=== PATIENT | male | born 1975 | race Asian ===

== ENCOUNTER 2019-02-25 08:41 | Emergency (ER) | payer OTHER ==
[~2019-02-25] VITALS: Ht 165.1 cm; Wt 75.0 kg
[2019-02-25] MEDS ORDERED: KETOROLAC 60 MG/2 ML VIAL (J1885) IM ONE (09:15)
[2019-02-25 09:23] LABS: BASO % 0.3 % (0.0-1.0); EOS % 0.4 % (0.0-3.0); HEMATOCRIT 43.4 % (42.0-52.0); HEMOGLOBIN 14.9 g/dl (13.5-17.5); LYMPH # 2.7 10^3/uL (1.5-5.0); MEAN CORPUSCULAR HEMOGLOBIN 30.9 pg (27.0-33.0); MEAN CORPUSCULAR HGB CONC 34.3 g/dl (32.0-36.5); MONO % 8.9 % (0.0-5.0); NEUTROPHILS # 7.1 10^3/uL (1.5-8.5); NEUTROPHILS % 65.1 % (36.0-66.0); PLATELET COUNT, AUTOMATED 245 10^3/uL (150-450); RED BLOOD COUNT 4.82 10^6/uL (4.30-6.10); WHITE BLOOD COUNT 10.8 10^3/uL (4.0-10.0)
[2019-02-25 09:45] LABS: ERYTHROCYTE SEDIMENTATION RATE 28 mm/hr (0-15)
--- NOTE | 2019-02-25 10:01 | REP ---
RIGHT WRIST, FOUR VIEWS: Four views of the right wrist are performed. There is no acute fracture or dislocation. There is an old healed fracture of the distal radius with a metallic plate and multiple metallic screws at that location. There is an old unfused avulsion fracture of the ulnar styloid process. A small calcific density is seen in the scapholunate joint about 2 mm in diameter probably representing an old fracture fragment. I do not see any acute findings. Electronically Signed by Jagjit Monterroso MD 02/25/2019 06:29 P
[2019-02-25 11:03] LABS: BLOOD UREA NITROGEN 9 MG/DL (7-18); C REACTIVE PROTEIN QUANTITATIV 5.23 MG/DL (0.00-0.30); CALCIUM LEVEL 9.3 MG/DL (8.5-10.1); CARBON DIOXIDE LEVEL 24 MEQ/L (21-32); CHLORIDE LEVEL 104 MEQ/L (98-107); CREATININE FOR GFR 1.08 MG/DL (0.70-1.30); GLOMERULAR FILTRATION RATE > 60.0 (>60); GLUCOSE, FASTING 126 MG/DL (70-100); POTASSIUM SERUM 3.6 MEQ/L (3.5-5.1); SODIUM LEVEL 138 MEQ/L (136-145)
[2019-02-25] MEDS ORDERED: COLC1TAB13 PO (11:15)
[2019-02-25 11:21] VITALS: BP 140/94
[2019-02-25 11:25] LABS: URIC ACID 5.8 MG/DL (3.5-7.2)
== END 2019-02-25 11:25 | disposition home or self-care (01) ==
LOC: M ED 08:41 → EDBD 08:41 → M ED 11:25
DX: M1A.0310 Idiopathic chronic gout, right wrist, without tophus (tophi) (principal); Z91.018 Allergy to other foods
CPT/HCPCS: 36415; 73110; 80048; 84550; 85025; 85652; 86140; 96372; 99283; J1885

== ENCOUNTER 2019-11-05 07:16 | Emergency (ER) | payer OTHER ==
[~2019-11-05] VITALS: Ht 165.1 cm; Wt 77.6 kg
[~2019-11-05 07:16] MED LIST: COLC1TAB13 PO
[2019-11-05 08:28] LABS: BASO % 0.4 % (0.0-1.0); EOS # 0.3 10^3/uL (0.0-0.5); EOS % 3.9 % (0.0-3.0); HEMATOCRIT 42.3 % (42.0-52.0); LYMPH # 2.9 10^3/uL (1.5-5.0); LYMPH % 40.6 % (24.0-44.0); MEAN CORPUSCULAR HGB CONC 33.1 g/dl (32.0-36.5); MEAN CORPUSCULAR VOLUME 87.6 fl (80.0-96.0); MONO # 0.6 10^3/uL (0.0-0.8); MONO % 8.7 % (0.0-5.0); NEUTROPHILS # 3.3 10^3/uL (1.5-8.5); NEUTROPHILS % 46.1 % (36.0-66.0); PLATELET COUNT, AUTOMATED 311 10^3/uL (150-450); RED BLOOD COUNT 4.83 10^6/uL (4.30-6.10); WHITE BLOOD COUNT 7.1 10^3/uL (4.0-10.0)
[2019-11-05 08:46] LABS: BLOOD UREA NITROGEN 10 MG/DL (7-18); CALCIUM LEVEL 8.9 MG/DL (8.5-10.1); CARBON DIOXIDE LEVEL 27 MEQ/L (21-32); CHLORIDE LEVEL 108 MEQ/L (98-107); CREATININE FOR GFR 1.05 MG/DL (0.70-1.30); GLOMERULAR FILTRATION RATE > 60.0 (>60); GLUCOSE, FASTING 105 MG/DL (70-100); POTASSIUM SERUM 4.2 MEQ/L (3.5-5.1); SODIUM LEVEL 141 MEQ/L (136-145)
[2019-11-05] MEDS ORDERED: NAPR500T6 PO (09:38)
[2019-11-05] MEDS ORDERED: PRED20TA PO (09:39)
[2019-11-05] MEDS ORDERED: NAPROXEN 250 MG TAB PO ONE (09:45)
[2019-11-05] MEDS ORDERED: predniSONE 20 MG TAB PO ONE (09:45)
[2019-11-05 09:54] VITALS: BP 146/91
--- NOTE | 2019-11-05 13:32 | REP ---
LEFT ANKLE, FOUR VIEWS: There is no evidence of an acute fracture, dislocation, or intrinsic bone disease. IMPRESSION: No fracture or dislocation. Electronically Signed by Jagjit Monterroso MD 11/05/2019 09:40 P
--- NOTE | 2019-11-05 13:33 | REP ---
LEFT FOOT, FOUR VIEWS: There is no evidence of an acute fracture, dislocation, or intrinsic bone disease. IMPRESSION: No fracture or dislocation. Electronically Signed by Jagjit Monterroso MD 11/05/2019 09:41 P
== END 2019-11-05 09:55 | disposition home or self-care (01) ==
LOC: M ED 07:16
DX: M10.072 Idiopathic gout, left ankle and foot (principal); Z91.013 Allergy to seafood; Z79.899 Other long term (current) drug therapy

== ENCOUNTER 2019-12-27 17:27 | Emergency (ER) | payer OTHER ==
[~2019-12-27] VITALS: Ht 165.1 cm; Wt 78.3 kg
[~2019-12-27 17:27] MED LIST changes: +NAPR500T6 PO; +PRED20TA PO
[2019-12-27] MEDS ORDERED: INDO-16 (17:34)
--- NOTE | 2019-12-27 18:05 | ECGEPIP ---
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
[2019-12-27 18:11] LABS: BASO % 0.4 % (0.0-1.0); EOS # 0.2 10^3/uL (0.0-0.5); EOS % 2.1 % (0.0-3.0); HEMATOCRIT 43.2 % (42.0-52.0); HEMOGLOBIN 14.3 g/dl (13.5-17.5); LYMPH # 2.9 10^3/uL (1.5-5.0); LYMPH % 36.1 % (24.0-44.0); MEAN CORPUSCULAR HEMOGLOBIN 29.4 pg (27.0-33.0); MEAN CORPUSCULAR HGB CONC 33.1 g/dl (32.0-36.5); MEAN CORPUSCULAR VOLUME 88.7 fl (80.0-96.0); MONO # 0.7 10^3/uL (0.0-0.8); MONO % 9.2 % (0.0-5.0); NEUTROPHILS # 4.2 10^3/uL (1.5-8.5); PLATELET COUNT, AUTOMATED 257 10^3/uL (150-450); RED BLOOD COUNT 4.87 10^6/uL (4.30-6.10)
--- NOTE | 2019-12-27 18:42 | REP ---
Clinical: Chest pain . Comparison: None . Findings: The mediastinum and cardiac silhouette are stable and within normal limits for portable technique. The lung mandel are clear without acute consolidation, effusion, or pneumothorax. Skeletal structures are intact. Impression: No acute cardiopulmonary process appreciated. Electronically Signed by Jonathan Whitehead MD 12/27/2019 06:33 P
[2019-12-27] MEDS ORDERED: KETO10TAB PO (18:50)
[2019-12-27 18:56] LABS: BLOOD UREA NITROGEN 14 MG/DL (7-18); CALCIUM LEVEL 9.3 MG/DL (8.5-10.1); CARBON DIOXIDE LEVEL 25 MEQ/L (21-32); CHLORIDE LEVEL 107 MEQ/L (98-107); CK-MB VALUE MASS 1.6 NG/ML (<3.6); CPK CREATINE PHOSPHOKINASE 316 U/L (39-308); CREATININE FOR GFR 1.38 MG/DL (0.70-1.30); GLOMERULAR FILTRATION RATE 59.6 (>60); GLUCOSE, FASTING 123 MG/DL (70-100); MB/CK RELATIVE INDEX 0.51 (< OR =4); SODIUM LEVEL 141 MEQ/L (136-145); TROPONIN I < 0.02 NG/ML (< 0.10)
[2019-12-27] MEDS ORDERED: KETOROLAC 30 MG/ML 1ML VIAL IV ONE (19:00)
[2019-12-27 19:15] VITALS: BP 147/93
== END 2019-12-27 19:42 | disposition home or self-care (01) ==
LOC: M ED 17:27
DX: M94.0 Chondrocostal junction syndrome [Tietze] (principal); M10.9 Gout, unspecified; Z91.018 Allergy to other foods
CPT/HCPCS: 71045; 80047; 80048; 82550; 82553; 84484; 85025; 93005; 93041; 94760; 96374; 99284; J1885

== ENCOUNTER 2020-09-29 05:47 | Inpatient (IN) | payer OTHER ==
[~2020-09-29] VITALS: Ht 165.1 cm; Wt 75.0 kg
[~2020-09-29 05:47] MED LIST changes: +COLC0.6T47 PO; -COLC1TAB13 PO; +INDO-16; +KETO10TAB PO
[2020-09-29] MEDS ORDERED: ZYLO300T6 PO (05:57)
[2020-09-29 07:00] LABS: BASO % 0.3 % (0.0-1.0); EOS % 0.3 % (0.0-3.0); HEMATOCRIT 44.2 % (42.0-52.0); HEMOGLOBIN 14.6 g/dl (13.5-17.5); LYMPH # 1.9 10^3/uL (1.5-5.0); LYMPH % 17.6 % (24.0-44.0); MEAN CORPUSCULAR HEMOGLOBIN 29.7 pg (27.0-33.0); MONO # 1.1 10^3/uL (0.0-0.8); MONO % 10.1 % (2.0-8.0); NEUTROPHILS # 7.5 10^3/uL (1.5-8.5); PLATELET COUNT, AUTOMATED 259 10^3/uL (150-450); RED BLOOD COUNT 4.91 10^6/uL (4.30-6.10); WHITE BLOOD COUNT 10.6 10^3/uL (4.0-10.0)
[2020-09-29 07:19] LABS: BLOOD UREA NITROGEN 10 MG/DL (7-18); CALCIUM LEVEL 9.4 MG/DL (8.5-10.1); CARBON DIOXIDE LEVEL 27 MEQ/L (21-32); CHLORIDE LEVEL 104 MEQ/L (98-107); CREATININE FOR GFR 1.14 MG/DL (0.70-1.30); GLOMERULAR FILTRATION RATE > 60.0 (>60); GLUCOSE, FASTING 122 MG/DL (70-100); POTASSIUM SERUM 3.3 MEQ/L (3.5-5.1); SODIUM LEVEL 137 MEQ/L (136-145); URIC ACID 6.9 MG/DL (3.5-7.2)
[2020-09-29] MEDS ORDERED: ACETAMINOPHEN 325 MG TAB PO ONE (07:25)
[2020-09-29 07:39] LABS: ERYTHROCYTE SEDIMENTATION RATE 8 mm/hr (0-15)
--- NOTE | 2020-09-29 08:15 | REPVR ---
PROCEDURE INFORMATION: Exam: XR Right Femur Exam date and time: 09/29/2020 7:07 AM Age: 44 years old Clinical indication: Pain; Multiple sites; Right; Additional info: Severe swelling, limited rom after running yesterday TECHNIQUE: Imaging protocol: XR Right femur. Views: 2 views. COMPARISON: No relevant prior studies available. FINDINGS: Bones/joints: Unremarkable. No acute fracture. Soft tissues: Unremarkable. IMPRESSION: No acute findings. Electronically signed by: Tato Wade On 09/29/2020 08:15:27 AM
--- NOTE | 2020-09-29 08:15 | REPVR ---
PROCEDURE INFORMATION: Exam: XR Right Tibia and Fibula Exam date and time: 09/29/2020 7:07 AM Age: 44 years old Clinical indication: Pain; Multiple sites; Right; Additional info: Severe swelling, limited rom after running yesterday TECHNIQUE: Imaging protocol: XR Right tibia and fibula. Views: 2 views. COMPARISON: No relevant prior studies available. FINDINGS: Bones/joints: Normal. Soft tissues: Normal. IMPRESSION: No acute findings. Electronically signed by: Tato Wade On 09/29/2020 08:14:59 AM
--- NOTE | 2020-09-29 08:16 | REPVR ---
PROCEDURE INFORMATION: Exam: XR Right Knee Exam date and time: 09/29/2020 7:07 AM Age: 44 years old Clinical indication: Pain; Knee; Right; Additional info: Severe swelling, limited rom after running yesterday TECHNIQUE: Imaging protocol: XR Right knee. Views: 4 or more views. COMPARISON: CR Femur RIGHT 09/29/2020 6:26 AM FINDINGS: Bones/joints: There is no fracture or dislocation. There is questionable suprapatellar knee joint effusion. Soft tissues: Normal. IMPRESSION: No fracture or dislocation. Questionable suprapatellar knee joint effusion. Electronically signed by: Tato Wade On 09/29/2020 08:16:33 AM
[2020-09-29] MEDS ORDERED: LIDOCAINE 2% MDV 20ML VIAL SC ONE (08:50)
[2020-09-29 09:42] LABS: SOURCE, BODY FLUID RT KNEE; SYNOVIAL FLUID COLOR PALE YELLOW (YELLOW)
[2020-09-29 09:45] LABS: SOURCE, BODY FLUID URIC ACID RT KNEE; URIC ACID, BODY FLUID 7.7 MG/DL (NOT ESTABLISHED)
[2020-09-29 09:46] LABS: SOURCE, BODY FLUID GLUCOSE RT KNEE
[2020-09-29 09:50] LABS: CRYSTALS, BODY FLUID URIC ACID (NONE SEEN); SOURCE, BODY FLUID CRYSTALS RT KNEE
[2020-09-29 09:56] LABS: BODY FLUID RHEUMATOID SCREEN NEGATIVE (NEGATIVE)
[2020-09-29 09:57] LABS: MUCIN CLOT TEST 4+ (4+)
[2020-09-29] MEDS: NS 1,000 ML IV SCH (10:19)
[2020-09-29 10:44] LABS: RSV AMPLIFICATION NEGATIVE (NEGATIVE)
[2020-09-29 13:01] VITALS: BP 155/89
[2020-09-29] MEDS ORDERED: KETOROLAC 30 MG/ML 1ML VIAL IV ONE (14:45)
[2020-09-29] MEDS ORDERED: KETOROLAC 30 MG/ML 1ML VIAL As Ordered ONE (15:30)
[2020-09-29] MEDS: allopurinoL 300 MG TAB PO SCH ×2 (15:57→18:06)
--- NOTE | 2020-09-29 15:57 | HPEPDOC ---
General Date of Admission Sep 29, 2020 at 10:09 Date of Service: Sep 29, 2020 Chief Complaint The patient is a 44-year-old male admitted with a reason for visit of Gout Flare Septic Joint Of Rt Knee Joint. 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 He denied any trauma or nay fall. It did not get better this am so came to the ED. He has been training a little harder than usual as he is going back to school so needs his physical fitness improved. His pain was located at the right knee about 5/10 when i saw him. He did get tylenol before, dull aching with swelling and warmth, no radiation. He had a kneetap done in the ED with WBC 79148 with 93% neutrophils, positive uric acid crystals, fluid glucose was very low at 5. fluid uric acid 7.7, blood was 6.9, cludy with lots of fibrin clots. Patient was admitted for possible septic arthritis with gout. Home Medications Scheduled Allopurinol (Zyloprim) 300 Mg Tablet, 300 MG PO DAILY, (Reported) Allergies Coded Allergies: Shrimp (Verified Allergy, Severe, throat swelling, 02/25/19) Past Medical History Medical History Gout Surgical History Right wrist surgery Family History Significant Family History: No pertinent family hx discussed with patient Social History Alcohol: occationally Drugs: denies A-FIB/CHADSVASC A-FIB History Current/History of A-Fib/PAF?: No Review of Systems Constitutional: Denies: Chills, Fever, Night Sweats Eyes: Denies: Pain, Vision change ENT: Denies: Head Aches, Ear Pain, Dysphagia Skin: Denies: Rash, Lesions, Breakdown Pulmonary: Denies: Dyspnea, Cough Cardiovascular: Denies: Chest Pain, Palpitations, Orthopnea, Paroxysmal Noc. Dyspnea, Lt Headedness Gastrointestinal: Denies: Nausea, Vomiting, Abdominal Pain, Diarrhea Musculoskeletal: Reports: Joint Pain (right knee pain and swelling) Neurological: Denies: Weakness, Numbness, Change in speech, Confusion Physical Examination General Exam: Positive: Alert, Cooperative, No Acute Distress Eye Exam: Positive: PERRLA, Conjunctiva & lids normal, EOMI; Negative: Sclera icteric ENT Exam: Positive: Atraumatic, Mucous membr. moist/pink, Pharynx Normal Neck Exam: Positive: Supple; Negative: JVD, thyromegaly Chest Exam: Positive: Clear to auscultation, Normal air movement Heart Exam: Positive: Rate Normal, Regular Rhythm, Normal S1, Normal S2; Negative: Murmurs, Rubs Abdomen Exam: Positive: Normal bowel sounds, Soft; Negative: Tenderness, Hepatospenomegaly Extremity Exam: Positive: Tenderness (right knee), Swelling (right knee); Negative: Clubbing, Cyanosis, Edema Skin Exam: Positive: Other skin issue (right knee warm and red) Neuro Exam: Positive: Normal Speech, Strength at 5/5 X4 ext, Normal Tone Psych Exam: Positive: Memory Intact, Oriented x 3 Vital Signs Vital Signs Date Time Temp Pulse Resp B/P (MAP) Pulse Ox O2 Delivery O2 Flow Rate FiO2 09/29/20 13:01 98.1 74 20 155/89 (111) 98 Room Air Laboratory Data Labs 24H Laboratory Tests 2 09/29/20 06:36: Immature Granulocyte % (Auto) 0.7, Neutrophils (%) (Auto) 71.0H, Lymphocytes (%) (Auto) 17.6L, Monocytes (%) (Auto) 10.1H, Eosinophils (%) (Auto) 0.3, Basophils (%) (Auto) 0.3, Neutrophils # (Auto) 7.5, Lymphocytes # (Auto) 1.9, Monocytes # (Auto) 1.1H, Eosinophils # (Auto) 0.0, Basophils # (Auto) 0.0, Nucleated Red Blood Cells % (auto) 0.0, Erythrocyte Sedimentation Rate 8, Anion Gap 6L, Glomerular Filtration Rate > 60.0, Lactic Acid Level 1.3, Uric Acid 6.9, Calcium Level 9.4, C-Reactive Protein, Quantitative 17.50H 09/29/20 09:02: Body Fluid Source RT KNEE, Body Fluid WBC (Auto) 05211Y, Body Fluid RBC (Auto) < 2, Body Fluid Mononuclear Cells % Auto 6.9H, Fluid Polymorphonuclear Cell % Auto 93.1H, Body Fluid Crystals URIC ACIDH, Body Fluid Crystal Source RT KNEE, Body Fluid Glucose Source RT KNEE, Body Fluid Glucose 5, Body Fluid Uric Acid 7.7, Body Fluid Uric Acid Source RT KNEE, Body Fluid Rheumatoid Factor Screen NEGATIVE, Body Fluid Rheumatoid Factor Source RT KNEE, Synovial Fluid Source RT KNEE, Synovial Fluid Color PALE YELLOW, Synovial Fluid Appearance CLOUDY, Synovial Fluid Mucin Clot 4+ 09/29/20 10:01: Coronavirus (COVID-19)(PCR) NEGATIVE, Influenza Type A (RT-PCR) NEGATIVE, Influenza Type B (RT-PCR) NEGATIVE, Respiratory Syncytial Virus (PCR) NEGATIVE CBC/BMP Laboratory Tests 09/29/20 06:36 Microbiology Microbiology 09/29/20 Gram Stain - Final, Resulted 09/29/20 Body Fluid Culture, Resulted Pending 09/29/20 Blood Culture, Received Pending 09/29/20 Blood Culture, Received Pending Assessment/Plan 44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 He denied any trauma or nay fall. It did not get better this am so came to the ED. He has been training a little harder than usual as he is going back to school so needs his physical fitness improved. His pain was located at the right knee about 5/10 when i saw him. He did get tylenol before, dull aching with swelling and warmth, no radiation. He had a kneetap done in the ED with WBC 78037 with 93% neutrophils, positive uric acid crystals, fluid glucose was very low at 5. fluid uric acid 7.7, blood was 6.9, cludy with lots of fibrin clots. Patient was admitted for possible septic arthritis with gout. Rule out Right knee septic arthritis Patient to go to OR with Dr Roberts. As patient is not septic will hold antibiotics till cultures sent from OR pain control with toradol prn. Gout Patient has h/o gout and this may be a gout flare will start on colchicine. continue allopurinol. Plan / VTE VTE Prophylaxis Ordered?: Yes PADMINI AGUILAR MD Sep 29, 2020 15:57
[2020-09-29] MEDS ORDERED: COLCHICINE 0.6 MG TABLET PO ONE (16:05)
[2020-09-29] MEDS ORDERED: fentaNYL 100 MCG/2 ML INJECTION (J3010) As Ordered ONE ×2 (18:05→20:56)
[2020-09-29] MEDS ORDERED: propofoL 200 MG/20 ML VIAL As Ordered ONE (18:05)
[2020-09-29] MEDS ORDERED: LIDOCAINE 2% 100MG/5ML SDV (FOR ANES.) As Ordered ONE (18:05)
[2020-09-29] MEDS ORDERED: MIDAZOLAM INJ 2MG/2ML VIAL (J2250 PER 1MG) As Ordered ONE (18:05)
[2020-09-29] MEDS ORDERED: EPINEPHrine 1MG/ML INJ 30ML MD-VIAL As Ordered ONE (18:09)
[2020-09-29] MEDS ORDERED: dexameTHASONE 4 MG/ML 1ML VIAL (J1100 PER 1MG) As Ordered ONE (20:27)
[2020-09-29] MEDS ORDERED: ACETAMINOPHEN 1000MG 100ML IV BTL (OFIRMEV) (J0131 PER 10MG) As Ordered ONE (20:42)
[2020-09-29] MEDS ORDERED: ONDANSETRON 4MG/2ML VIAL As Ordered ONE (20:51)
[2020-09-29] MEDS ORDERED: KETOROLAC 30 MG/ML 1ML VIAL IV PRN (21:00)
[2020-09-29] MEDS ORDERED: oxyCODONE 5MG TAB PO PRN (22:00)
[2020-09-29] MEDS ORDERED: fentaNYL 100 MCG/2 ML INJECTION (J3010) IV PRN (22:00)
[2020-09-29] MEDS ORDERED: ONDANSETRON 4MG/2ML VIAL IV PRN (22:00)
[2020-09-29] MEDS ORDERED: LR 1,000 ML IV SCH (22:00)
[2020-09-29] MEDS ORDERED: HYDROMORPHONE HCL 0.5 MG/ 0.5 ML SYRINGE (J1170 PER 1) IV PRN (22:00)
[2020-09-29 22:30] VITALS: BP 148/92
[2020-09-29 22:45] VITALS: BP 149/93
[2020-09-29 23:00] VITALS: BP 141/90
[2020-09-30] VITALS (7 sets, daily range): BP systolic 119–140; BP diastolic 67–86
[2020-09-30] MEDS: NS 1,000 ML IV SCH (05:50)
[2020-09-30 07:03] LABS: BASO % 0.1 % (0.0-1.0); HEMATOCRIT 40.5 % (42.0-52.0); HEMOGLOBIN 13.5 g/dl (13.5-17.5); LYMPH # 0.8 10^3/uL (1.5-5.0); LYMPH % 10.9 % (24.0-44.0); MEAN CORPUSCULAR HEMOGLOBIN 29.6 pg (27.0-33.0); MEAN CORPUSCULAR HGB CONC 33.3 g/dl (32.0-36.5); MEAN CORPUSCULAR VOLUME 88.8 fl (80.0-96.0); MONO # 0.3 10^3/uL (0.0-0.8); MONO % 4.1 % (2.0-8.0); NEUTROPHILS # 5.8 10^3/uL (1.5-8.5); NEUTROPHILS % 84.6 % (36.0-66.0); PLATELET COUNT, AUTOMATED 248 10^3/uL (150-450); RED BLOOD COUNT 4.56 10^6/uL (4.30-6.10); WHITE BLOOD COUNT 6.9 10^3/uL (4.0-10.0)
[2020-09-30 07:27] LABS: BLOOD UREA NITROGEN 13 MG/DL (7-18); CALCIUM LEVEL 8.6 MG/DL (8.5-10.1); CARBON DIOXIDE LEVEL 24 MEQ/L (21-32); CHLORIDE LEVEL 106 MEQ/L (98-107); CREATININE FOR GFR 1.01 MG/DL (0.70-1.30); GLOMERULAR FILTRATION RATE > 60.0 (>60); GLUCOSE, FASTING 156 MG/DL (70-100); POTASSIUM SERUM 4.2 MEQ/L (3.5-5.1); SODIUM LEVEL 138 MEQ/L (136-145)
--- NOTE | 2020-09-30 08:29 | RO ---
OPERATIVE NOTE DATE OF OPERATION: 09/29/2020 TIME: 9 p.m. PREOPERATIVE DIAGNOSIS: 1. Right septic knee joint. 2. Gout. POSTOPERATIVE DIAGNOSIS: 1. Right septic knee joint. 2. Gout. NAME OF OPERATION: Right knee arthroscopic irrigation and debridement. 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 SUPERVISING ATTENDING: Davonte Roberts MD FINDINGS: The patient had 100 mL of purulent and gouty tophi of the right knee. The patient had mild chondromalacia about the medial and lateral compartments as well as the patellofemoral compartment, a big one. 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 The patient had a rough august yesterday on the September, and noticed increased pain and swelling of his right knee. The patient denied any trauma or fall. He does report a history of gout treated with allopurinol on an as-needed basis. He presented to [facility] emergency department for further evaluation and treatment of his right painful knee. On examination, the patient had a dull, aching swelling and warmth to the right knee. He had a white blood cell count of 10.8, ESR of 8, temperature of 98 degrees. However, a synovial aspiration of his right knee yielded 63,574 white blood cell count with 93% neutrophils as well as crystals significant for gout. PAST MEDICAL HISTORY: Significant only for gout. The patient was indicated for a right arthroscopic knee irrigation and debridement for the synovial findings and clinical presentation. ANESTHESIA: GETA. TOURNIQUET TIME: 40 minutes. ESTIMATED BLOOD LOSS: 10 mL. IV FLUIDS: Please see anesthesia report. IV ANTIBIOTICS: None. IMPLANTS: None. CULTURES: Gram stain, anaerobic and aerobic. SPECIMENS: Right knee synovial fluid. DESCRIPTION OF PROCEDURE: The patient was met in the preoperative holding area where the patient's operative extremity was signed, the patient's consent was confirmed to be correct, and the patient's identity was confirmed to be correct. The patient was then transported to the operating theater where he was placed on a regular surgical flat-top bed with a right thigh post. A safety strap secured the patient to the bed. All bony prominences were well padded. The contralateral lower extremity had SCD placed. A timeout was called to confirm the correct patient, correct operative extremity and correct consent. All staff was in agreement. The patient was then draped in the usual sterile fashion. We began the procedure by establishing our anterolateral and anteromedial portals. Prior to this, however, we did aspirate the right knee, yielding 100 mL of purulent gouty fluid. We then proceeded with a diagnostic arthroscopy while simultaneously irrigating the patient's right knee. During this arthroscopy, I noticed grade 1 chondromalacia about the medial and lateral patellofemoral joints. His lateral medial meniscus was intact. His anterior cruciate ligament and posterior cruciate ligament was intact. The medial and lateral facets of the patellar tendon had mild chondromalacia, however, it was intact. The medial and lateral gutters did have some gouty tophi and the patient did have residual purulent-like fluid coming from the knee. We then irrigated with nine liters of normal saline, ensuring that we thoroughly explored each of his compartments. I then placed an anteromedial portal in order to further irrigate the suprapatellar pouch. At the conclusion of the case, we irrigated with nine liters of normal saline with arthroscopic irrigation and debridement. In addition to the arthroscopic irrigation, I did use the shaver to debride out any inflamed fat pad and infected-looking synovial tissue. At the conclusion of the case, I closed each of the arthroscopic portal incision using a 3-0 nylon suture. His right lower extremity had Xeroform placed over all the surgical incisions followed by 4x4s, Webril and Nelson bandage. The patient was then extubated without complication and transported to the postanesthesia care unit. The patient's care will be transferred from myself to the admitting service. We will wait for his aerobic and anaerobic cultures to grow in the next 48 hours. He will likely be receiving empirical antibiotics by his primary team. He will be given the appropriate pain medications. He is a patient. He will follow up with myself at [facility] [place] for further followup. We will continue to round this patient and trend both his laboratory values as well as his anaerobic and aerobic cultures to determine possible IV antibiotics in the future. He will also be treated for his gout to include medication as determined by his internal medicine team. NATE
[2020-09-30] MEDS ORDERED: COLCHICINE 0.6 MG TABLET PO SCH (09:00)
[2020-09-30] MEDS: allopurinoL 300 MG TAB PO SCH (09:08)
[2020-09-30] MEDS: NAPROXEN 250 MG TAB PO SCH ×2 (09:09→20:17)
[2020-09-30] MEDS ORDERED: VANCOMYCIN HCL 1,000 MG, VIAL MATE ADAPTER 1 EACH in NS 250 ML IV ONE (11:00)
[2020-09-30] MEDS ORDERED: VANCOMYCIN HCL 750 MG, VIAL MATE ADAPTER 1 EACH in NS 250 ML IV ONE (12:00)
--- NOTE | 2020-09-30 14:52 | IPNPDOC ---
Subjective Date Seen The patient was seen on 09/30/20. Subjective Chief Complaint/HPI No complaints . Knee pain all gone. Says he can run today. No fever or chills Objective Physical Examination General Exam: Positive: Alert, Cooperative, No Acute Distress Eye Exam: Positive: PERRLA, Conjunctiva & lids normal, EOMI; Negative: Sclera icteric ENT Exam: Positive: Atraumatic, Mucous membr. moist/pink, Pharynx Normal Neck Exam: Positive: Supple; Negative: JVD, thyromegaly Chest Exam: Positive: Clear to auscultation, Normal air movement Heart Exam: Positive: Rate Normal, Regular Rhythm, Normal S1, Normal S2; Negative: Murmurs, Rubs Abdomen Exam: Positive: Normal bowel sounds, Soft; Negative: Tenderness, Hepatospenomegaly Extremity Exam: Positive: Tenderness (right knee), Swelling (right knee); Negative: Clubbing, Cyanosis, Edema Skin Exam: Positive: Other skin issue (right knee warm and red) Neuro Exam: Positive: Normal Speech, Strength at 5/5 X4 ext, Normal Tone Psych Exam: Positive: Memory Intact, Oriented x 3 Assessment /Plan Assessment 44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 He denied any trauma or nay fall. It did not get better this am so came to the ED. He has been training a little harder than usual as he is going back to school so needs his physical fitness improved. His pain was located at the right knee about 5/10 when i saw him. He did get tylenol before, dull aching with swelling and warmth, no radiation. He had a kneetap done in the ED with WBC 26174 with 93% neutrophils, positive uric acid crystals, fluid glucose was very low at 5. fluid uric acid 7.7, blood was 6.9, cludy with lots of fibrin clots. Patient was admitted for possible septic arthritis with gout. Rule out Right knee septic arthritis Knee washout done on 09/29 started on vancomycin. await culture reports. Gout Patient has h/o gout and this may be a gout flare on colchicine. Naproxen continue allopurinol. Plan/VTE VTE Prophylaxis Ordered?: Yes VS, I&O, 24H, Fishbone Vital Signs/I&O Vital Signs Date Time Temp Pulse Resp B/P (MAP) Pulse Ox O2 Delivery O2 Flow Rate FiO2 09/30/20 10:00 98.2 80 19 134/75 (94) 96 Room Air I&O- Last 24 Hours up to 6 AM 09/30/20 07:00 Intake Total 2854 ml Output Total 510 ml Balance 2344 ml Laboratory Data 24H LABS Laboratory Tests 2 09/30/20 06:05: Immature Granulocyte % (Auto) 0.3, Neutrophils (%) (Auto) 84.6H, Lymphocytes (%) (Auto) 10.9L, Monocytes (%) (Auto) 4.1, Eosinophils (%) (Auto) 0.0, Basophils (%) (Auto) 0.1, Neutrophils # (Auto) 5.8, Lymphocytes # (Auto) 0.8L, Monocytes # (Auto) 0.3, Eosinophils # (Auto) 0.0, Basophils # (Auto) 0.0, Nucleated Red Blood Cells % (auto) 0.0, Anion Gap 8, Glomerular Filtration Rate > 60.0, Calcium Level 8.6, C-Reactive Protein, Quantitative 16.40H CBC/BMP Laboratory Tests 09/30/20 06:05 Microbiology Microbiology 09/29/20 Gram Stain - Final, Resulted 09/29/20 Body Fluid Culture, Resulted Pending 09/29/20 Blood Culture - Preliminary, Resulted No growth after 24 hours . All specim... 09/29/20 Blood Culture - Preliminary, Resulted No growth after 24 hours . All specim... PADMINI AGUILAR MD Sep 30, 2020 14:52
--- NOTE | 2020-09-30 17:06 | ER ---
ER CONSULTATION DATE: 09/29/2020 TIME OF CONSULT: 3 p.m. CONSULTING SERVICE: Orthopedic Surgery. CONSULTING PHYSICIAN: Davonte Roberts MD. HISTORY OF PRESENT ILLNESS: This is a 44-year-old male with right septic knee with concomitant gout. 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 The patient was doing a august yesterday on the 28 of September and appreciated increased pain and swelling of his right knee. He denied any trauma or fall. The patient's right knee was not getting better so the patient presented to the emergency department for further evaluation and treatment. The patient's white blood cell count was 10.8, ESR of 8, temperature of 98 degrees. The PA imaged at [facility] and aspirated his knee yielding 63,574 white blood cells with 93% neutrophils and positive crystals indicative of gout. Orthopedic surgery was consulted for further evaluation. Given his white blood cell synovial count of 63,000 and 93% neutrophils he was indicated for right knee arthroscopic irrigation and debridement. MEDICAL HISTORY: Gout. SURGICAL HISTORY: Right distal radius open reduction and internal fixation. FAMILY HISTORY: Not pertinent. SOCIAL HISTORY: Social alcohol use, no IV drugs, no smoking. CURRENT MEDICATIONS: Allopurinol as needed for gout. ALLERGIES TO MEDICATIONS: denies REVIEW OF SYSTEMS: 14-point review of systems negative unless otherwise as described in HPI. PHYSICAL EXAM: The patient is alert to person, time and place. The patient had a very swollen right knee with obvious right knee effusion. The patient was otherwise was neurovascularly intact to the right lower extremity with 5/5 motor strength of EHL, FHL, tibialis anterior, gastroc-soleus and peroneal muscular complex. The patient had sensation intact to light touch to deep and superficial peroneal, sural, saphenous and tibial nerve distributions. The patient had 2+ dorsalis pedis and posterior tibial arterial pulses and brisk capillary refill to the toes. RADIOGRAPHS: The patient's right knee radiographs showed no osseous abnormalities. IMPRESSION: This is a 44-year-old male with right septic knee and concomitant gout. PLAN: Given the patient's synovial findings of 63,574 white blood cells and 93% PMN and clinical presentation with pain with weightbearing, the patient is indicated for right arthroscopic irrigation and debridement for clinical presentation and laboratory evidence for right septic knee. The patient also has concomitant gout as indicated by the crystal findings and tophi right knee. The patient had a COVID test which was negative and has been NPO since the morning. He is indicated for the aforementioned procedure. NATE
[2020-09-30] MEDS: VANCOMYCIN HCL 1,000 MG, VIAL MATE ADAPTER 1 EACH in NS 250 ML IV SCH (18:36)
[2020-09-30] MEDS: COLCHICINE 0.6 MG TABLET PO SCH (20:18)
[2020-10-01] MEDS: VANCOMYCIN HCL 1,000 MG, VIAL MATE ADAPTER 1 EACH in NS 250 ML IV SCH ×2 (02:38→11:55)
[2020-10-01 06:00] VITALS: BP 126/76
[2020-10-01 07:28] LABS: BASO % 0.2 % (0.0-1.0); EOS % 0.1 % (0.0-3.0); HEMATOCRIT 39.1 % (42.0-52.0); HEMOGLOBIN 12.9 g/dl (13.5-17.5); LYMPH # 2.8 10^3/uL (1.5-5.0); LYMPH % 28.6 % (24.0-44.0); MEAN CORPUSCULAR HEMOGLOBIN 29.3 pg (27.0-33.0); MEAN CORPUSCULAR VOLUME 88.7 fl (80.0-96.0); MONO # 0.7 10^3/uL (0.0-0.8); MONO % 7.6 % (2.0-8.0); NEUTROPHILS # 6.1 10^3/uL (1.5-8.5); NEUTROPHILS % 63.2 % (36.0-66.0); PLATELET COUNT, AUTOMATED 298 10^3/uL (150-450); RED BLOOD COUNT 4.41 10^6/uL (4.30-6.10); WHITE BLOOD COUNT 9.6 10^3/uL (4.0-10.0)
[2020-10-01 07:33] LABS: BLOOD UREA NITROGEN 14 MG/DL (7-18); CALCIUM LEVEL 8.8 MG/DL (8.5-10.1); CARBON DIOXIDE LEVEL 25 MEQ/L (21-32); CHLORIDE LEVEL 110 MEQ/L (98-107); CREATININE FOR GFR 0.92 MG/DL (0.70-1.30); GLOMERULAR FILTRATION RATE > 60.0 (>60); GLUCOSE, FASTING 120 MG/DL (70-100); SODIUM LEVEL 142 MEQ/L (136-145)
[2020-10-01] MEDS: COLCHICINE 0.6 MG TABLET PO SCH (10:04)
[2020-10-01] MEDS: NAPROXEN 250 MG TAB PO SCH (10:05)
[2020-10-01] MEDS: allopurinoL 300 MG TAB PO SCH (10:05)
[2020-10-01] MEDS ORDERED: COLC0.6T47 PO ×2 (12:10→15:28)
[2020-10-01] MEDS ORDERED: NAPR-849 PO ×2 (12:10→15:28)
[2020-10-01 14:00] VITALS: BP 140/86
[2020-10-01] MEDS ORDERED: VANCOMYCIN HCL 500 MG in D5W MINI-BAG PLUS 100 ML IV ONE (14:00)
--- NOTE | 2020-10-01 16:31 | DS.PDOC ---
Discharge Summary General Date of Admission Sep 29, 2020 at 10:09 Date of Discharge 10/01/20 Discharge Summary PROCEDURES PERFORMED DURING STAY: Right knee arthroscopic irrigation and debridement. DISCHARGE DIAGNOSES: Right Knee acute Gout Flare Ruled out septic arthritis. COMPLICATIONS/CHIEF COMPLAINT: Gout Flare Septic Joint Of Rt Knee Joint. 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 He denied any trauma or nay fall. It did not get better this am so came to the ED. He has been training a little harder than usual as he is going back to school so needs his physical fitness improved. His pain was located at the right knee about 5/10 when i saw him. He did get tylenol before, dull aching with swelling and warmth, no radiation. He had a knee tap done in the ED with WBC 38848 with 93% neutrophils, positive uric acid crystals, fluid glucose was very low at 5. fluid uric acid 7.7, blood was 6.9, cludy with lots of fibrin clots. Patient was admitted for possible septic arthritis with gout. Rule out Right knee septic arthritis Knee washout done on 09/29 Cultures from the knee tap in ED is negative for areobic and anareobic growth grma stain from the OR culture is negative, cultures from the OR still pending. this does not look like septic arthritis will continue to follow final joint cultures. Follow up with Dr Roberts in 1 week. Weight bearing as tolerated. Keep dressing on till seen by Dr Roberts Acute flare of Gout Knee arthroscopy showed tophi in the knee joint. Joint fluid positive for uric acid crystals. Started on colchicine. Naproxen continue allopurinol. DISCHARGE MEDICATIONS: Please see below. ALLERGIES: Please see below. PHYSICAL EXAMINATION ON DISCHARGE: VITAL SIGNS: Please see below. General Exam: Positive: Alert, Cooperative, No Acute Distress Eye Exam: Positive: PERRLA, Conjunctiva & lids normal, EOMI; Negative: Sclera icteric ENT Exam: Positive: Atraumatic, Mucous membr. moist/pink, Pharynx Normal Neck Exam: Positive: Supple; Negative: JVD, thyromegaly Chest Exam: Positive: Clear to auscultation, Normal air movement Heart Exam: Positive: Rate Normal, Regular Rhythm, Normal S1, Normal S2; Negative: Murmurs, Rubs Abdomen Exam: Positive: Normal bowel sounds, Soft; Negative: Tenderness, Hepatosplenomegaly Extremity Exam: Positive: right knee with surical dressing Negative: Clubbing, Cyanosis, Edema Skin Exam: Positive: Other skin issue (right knee warm and red) Neuro Exam: Positive: Normal Speech, Strength at 5/5 X4 ext, Normal Tone Psych Exam: Positive: Memory Intact, Oriented x 3 LABORATORY DATA: Please see below. ACTIVITY: [As tolerated]. DIET: regular DISPOSITION: 01 Home, Self-Care. DISCHARGE INSTRUCTIONS: Follow up at [facility] in 3 days Follow up with Dr Roberts in 1 week DISCHARGE CONDITION: [Stable]. TIME SPENT ON DISCHARGE: 35 minutes. Vital Signs/I&Os Vital Signs Date Time Temp Pulse Resp B/P (MAP) Pulse Ox O2 Delivery O2 Flow Rate FiO2 10/01/20 14:00 97.7 59 18 140/86 (104) 97 Room Air I&O- Last 24 Hours up to 6 AM 10/01/20 07:00 Intake Total 2275 ml Output Total 675 ml Balance 1600 ml Laboratory Data Labs 24H Laboratory Tests 2 10/01/20 06:48: Immature Granulocyte % (Auto) 0.3, Neutrophils (%) (Auto) 63.2, Lymphocytes (%) (Auto) 28.6, Monocytes (%) (Auto) 7.6, Eosinophils (%) (Auto) 0.1, Basophils (%) (Auto) 0.2, Neutrophils # (Auto) 6.1, Lymphocytes # (Auto) 2.8, Monocytes # (Auto) 0.7, Eosinophils # (Auto) 0.0, Basophils # (Auto) 0.0, Nucleated Red Blood Cells % (auto) 0.0, Anion Gap 7L, Glomerular Filtration Rate > 60.0, Calcium Level 8.8 10/01/20 10:20: Vancomycin Level Trough 12.1 CBC/BMP Laboratory Tests 10/01/20 06:48 Microbiology Microbiology 09/29/20 Gram Stain - Final, Resulted 09/29/20 Wound Culture, Resulted Pending 09/29/20 Anaerobic Culture, Resulted Pending 09/29/20 Gram Stain - Final, Complete 09/29/20 Body Fluid Culture - Final, Complete 09/29/20 Blood Culture - Preliminary, Resulted No Growth after 48 hours. All Specime... 09/29/20 Blood Culture - Preliminary, Resulted No Growth after 48 hours. All Specime... Discharge Medications Scheduled Allopurinol (Zyloprim) 300 Mg Tablet, 300 MG PO DAILY, (Reported) Colchicine (Colchicine) 0.6 Mg Tablet, 0.6 MG PO BID Naproxen (Naproxen) 250 Mg Tablet, 500 MG PO BID Allergies Coded Allergies: Shrimp (Verified Allergy, Severe, throat swelling, 02/25/19) PADMINI AGUILAR MD Oct 01, 2020 16:31
[2020-10-01 17:07] LABS: Lyme Disease IgG/IgM Antibodie <0.91 ISR (0.00-0.90); Lyme Disease IgM Ab Quantitati <0.80 index (0.00-0.79)
== END 2020-10-01 14:22 | disposition home or self-care (01) | DRG 489 ==
LOC: M ED 05:47 → M ED INP 10:09 → ENRESERV 12:02 → M MSPAV 12:59
PROVIDERS: ADMIT Internal Medicine Nephrology; ATTEND Internal Medicine Nephrology
PROC: 0SBC4ZZ Excision of Right Knee Joint, Percutaneous Endoscopic Approach (ICD-10-PCS; principal; 2020-09-29 14:28)
DX: M10.9 Gout, unspecified (principal); Z91.013 Allergy to seafood; Z79.899 Other long term (current) drug therapy

== ENCOUNTER 2020-10-26 07:46 | Emergency (ER) | payer OTHER ==
[~2020-10-26] VITALS: Ht 162.6 cm; Wt 72.7 kg
[~2020-10-26 07:46] MED LIST changes: +NAPR-849 PO; +ZYLO300T6 PO
[2020-10-26] MEDS ORDERED: IBUP200T45 PO (07:54)
[2020-10-26] MEDS ORDERED: CELE1CAP9 (07:54)
[2020-10-26] MEDS ORDERED: INDOMETHACIN 25 MG CAP PO ONE (09:50)
[2020-10-26] MEDS ORDERED: INDO50CA91 PO (09:52)
[2020-10-26 10:18] LABS: BASO % 0.3 % (0.0-1.0); EOS # 0.2 10^3/uL (0.0-0.5); EOS % 1.8 % (0.0-3.0); HEMATOCRIT 41.4 % (42.0-52.0); HEMOGLOBIN 13.4 g/dl (13.5-17.5); LYMPH # 1.8 10^3/uL (1.5-5.0); LYMPH % 18.3 % (24.0-44.0); MEAN CORPUSCULAR HEMOGLOBIN 29.1 pg (27.0-33.0); MEAN CORPUSCULAR HGB CONC 32.4 g/dl (32.0-36.5); MONO # 0.8 10^3/uL (0.0-0.8); MONO % 7.8 % (2.0-8.0); NEUTROPHILS # 7.1 10^3/uL (1.5-8.5); NEUTROPHILS % 71.5 % (36.0-66.0); PLATELET COUNT, AUTOMATED 356 10^3/uL (150-450)
--- NOTE | 2020-10-26 10:19 | REP ---
INDICATION: swelling/pain COMPARISON: 09/29/2020 TECHNIQUE: AP, lateral, bilateral oblique and sunrise views. FINDINGS: Very subtle increased sclerosis to the tibial plateau with minimal joint space narrowing and subtle early lateral compartment spurring. Lateral view suggests decreased anterior swelling to the quadriceps region and possible effusion. No obvious acute fracture or dislocation. IMPRESSION: Mild degenerative changes. Anterior swelling and possible effusion. No acute fracture or dislocation appreciated. Findings appear relatively similar to prior examination although may be minimally improved <Electronically signed by Jonathan Whitehead > 10/26/20 [id number]
[2020-10-26 10:35] LABS: ERYTHROCYTE SEDIMENTATION RATE 58 mm/hr (0-15)
--- NOTE | 2020-10-26 10:36 | REP ---
INDICATION: swollen joint. COMPARISON: None. TECHNIQUE: Real-time sonographic evaluation of right knee soft tissues performed both anteriorly and posteriorly. FINDINGS: Complex fluid is seen anteriorly in the soft tissues, measuring 12.1 x 2.2 x 6.2 cm. There is no fluid collection posteriorly. IMPRESSION: Complex fluid collection anterior soft tissues right knee measuring 12.1 x 2.2 x 6.2 cm. <Electronically signed by Jagjit Monterroso > 10/26/20 1031
[2020-10-26 10:51] LABS: ALBUMIN 3.7 GM/DL (3.2-5.2); BILIRUBIN,DIRECT 0.1 MG/DL (0.0-0.2); BILIRUBIN,TOTAL 0.5 MG/DL (0.2-1.0); C REACTIVE PROTEIN QUANTITATIV 4.82 MG/DL (0.00-0.30); URIC ACID 7.9 MG/DL (3.5-7.2)
[2020-10-26] MEDS ORDERED: NORCO, ANEXSIA 5/325MG TABLET (HYDROcodone/ACETAMINOPHEN) PO ONE (11:50)
[2020-10-26] MEDS ORDERED: CEPH500T PO (11:56)
[2020-10-26 12:07] VITALS: BP 156/98
[2020-10-26] MEDS ORDERED: PERC5TAB12 PO (12:09)
--- NOTE | 2020-10-29 11:30 | ED PDOC ---
Post-Departure Follow-Up ft og faxed us right lower extrem us for fu Markus Hernandez MD October 29, 2020 11:30
== END 2020-10-26 12:24 | disposition home or self-care (01) ==
LOC: M ED 07:46
DX: L03.115 Cellulitis of right lower limb (principal); M25.461 Effusion, right knee; G89.28 Other chronic postprocedural pain; I10 Essential (primary) hypertension; E78.5 Hyperlipidemia, unspecified; M10.9 Gout, unspecified; Z79.899 Other long term (current) drug therapy; Z91.013 Allergy to seafood

== ENCOUNTER 2020-12-24 17:55 | Emergency (ER) | payer OTHER ==
[~2020-12-24] VITALS: Ht 165.1 cm; Wt 72.7 kg
[~2020-12-24 17:55] MED LIST changes: +CELE1CAP9; +CEPH500T PO; +IBUP200T45 PO; +INDO50CA91 PO; +PERC5TAB12 PO
[2020-12-24] MEDS ORDERED: CIPROFLOXACIN 500MG TABLET PO ONE (23:05)
[2020-12-24] MEDS ORDERED: PHENAZOPYRIDINE 100 MG TAB PO ONE (23:05)
[2020-12-24 23:08] VITALS: BP 128/69
[2020-12-24] MEDS ORDERED: PYRI1TAB5 PO (23:24)
[2020-12-24] MEDS ORDERED: CIPR500T39 PO (23:24)
== END 2020-12-24 23:20 | disposition home or self-care (01) ==
LOC: M ED 17:55
DX: N39.0 Urinary tract infection, site not specified (principal); E78.5 Hyperlipidemia, unspecified; M10.9 Gout, unspecified; Z79.899 Other long term (current) drug therapy; Z91.013 Allergy to seafood

== ENCOUNTER 2020-12-26 14:40 | Emergency (ER) | payer OTHER ==
[~2020-12-26] VITALS: Ht 165.1 cm; Wt 75.7 kg
[2020-12-26 14:40] VITALS: BP 153/84
[~2020-12-26 14:40] MED LIST changes: +CIPR500T39 PO; +PYRI1TAB5 PO
[2020-12-26] MEDS ORDERED: NAPROXEN 250 MG TAB PO ONE (17:15)
[2020-12-26 17:53] LABS: BASO % 0.3 % (0.0-1.0); EOS # 0.1 10^3/uL (0.0-0.5); EOS % 1.2 % (0.0-3.0); HEMATOCRIT 45.4 % (42.0-52.0); HEMOGLOBIN 14.4 g/dl (13.5-17.5); LYMPH # 2.5 10^3/uL (1.5-5.0); LYMPH % 24.5 % (24.0-44.0); MEAN CORPUSCULAR HEMOGLOBIN 28.3 pg (27.0-33.0); MEAN CORPUSCULAR HGB CONC 31.7 g/dl (32.0-36.5); MEAN CORPUSCULAR VOLUME 89.4 fl (80.0-96.0); MONO # 1.1 10^3/uL (0.0-0.8); MONO % 10.2 % (2.0-8.0); NEUTROPHILS # 6.5 10^3/uL (1.5-8.5); NEUTROPHILS % 63.2 % (36.0-66.0); PLATELET COUNT, AUTOMATED 350 10^3/uL (150-450); RED BLOOD COUNT 5.08 10^6/uL (4.30-6.10); WHITE BLOOD COUNT 10.3 10^3/uL (4.0-10.0)
[2020-12-26 18:07] LABS: BLOOD UREA NITROGEN 19 MG/DL (7-18); CALCIUM LEVEL 9.2 MG/DL (8.5-10.1); CARBON DIOXIDE LEVEL 29 MEQ/L (21-32); CHLORIDE LEVEL 103 MEQ/L (98-107); CREATININE FOR GFR 1.21 MG/DL (0.70-1.30); GLOMERULAR FILTRATION RATE > 60.0 (>60); GLUCOSE, FASTING 112 MG/DL (70-100); POTASSIUM SERUM 4.1 MEQ/L (3.5-5.1); SODIUM LEVEL 137 MEQ/L (136-145)
[2020-12-26 18:09] LABS: URIC ACID 6.5 MG/DL (3.5-7.2)
[2020-12-26 18:16] LABS: ERYTHROCYTE SEDIMENTATION RATE 26 mm/hr (0-15)
[2020-12-26] MEDS ORDERED: MACR100C43 PO (19:16)
[2020-12-28 17:08] LABS: Lyme Disease IgG/IgM Antibodie <0.91 ISR (0.00-0.90); Lyme Disease IgM Ab Quantitati <0.80 index (0.00-0.79)
== END 2020-12-26 19:27 | disposition home or self-care (01) ==
LOC: M ED 14:40
DX: M13.0 Polyarthritis, unspecified (principal); E78.00 Pure hypercholesterolemia, unspecified; Z79.899 Other long term (current) drug therapy; Z91.013 Allergy to seafood

== ENCOUNTER 2020-12-31 08:20 | Emergency (ER) | payer OTHER ==
[~2020-12-31] VITALS: Ht 152.4 cm; Wt 75.7 kg
[~2020-12-31 08:20] MED LIST changes: +MACR100C43 PO
[2020-12-31] MEDS ORDERED: KETOROLAC 30 MG/ML 1ML VIAL IV ONE (08:45)
--- NOTE | 2020-12-31 09:03 | REP ---
INDICATION: CHEST PAIN. COMPARISON: Comparison chest x-ray December 27, 2019. TECHNIQUE: Portable upright AP chest radiograph. FINDINGS: The lungs are well inflated and free of infiltrate. Pleural angles are sharp. Heart size is normal. Pulmonary vasculature is not increased. The thoracic aorta is somewhat tortuous. IMPRESSION: No active disease. <Electronically signed by Abhinav Lopez > 12/31/20 0900
[2020-12-31 09:18] LABS: BASO # 0.1 10^3/uL (0.0-0.2); BASO % 0.6 % (0.0-1.0); EOS # 0.2 10^3/uL (0.0-0.5); EOS % 2.9 % (0.0-3.0); HEMATOCRIT 44.4 % (42.0-52.0); HEMOGLOBIN 14.2 g/dl (13.5-17.5); LYMPH # 2.4 10^3/uL (1.5-5.0); LYMPH % 29.9 % (24.0-44.0); MEAN CORPUSCULAR HEMOGLOBIN 28.1 pg (27.0-33.0); MEAN CORPUSCULAR VOLUME 87.9 fl (80.0-96.0); MONO # 0.5 10^3/uL (0.0-0.8); MONO % 6.6 % (2.0-8.0); NEUTROPHILS # 4.9 10^3/uL (1.5-8.5); NEUTROPHILS % 59.6 % (36.0-66.0); PLATELET COUNT, AUTOMATED 481 10^3/uL (150-450); RED BLOOD COUNT 5.05 10^6/uL (4.30-6.10); WHITE BLOOD COUNT 8.2 10^3/uL (4.0-10.0)
[2020-12-31 10:49] LABS: ALBUMIN 3.4 GM/DL (3.2-5.2); ALT/SGPT 53 U/L (12-78); BILIRUBIN,DIRECT < 0.1 MG/DL (0.0-0.2); BILIRUBIN,TOTAL 0.3 MG/DL (0.2-1.0); BLOOD UREA NITROGEN 15 MG/DL (7-18); CALCIUM LEVEL 9.1 MG/DL (8.5-10.1); CARBON DIOXIDE LEVEL 28 MEQ/L (21-32); CHLORIDE LEVEL 106 MEQ/L (98-107); CREATININE FOR GFR 0.88 MG/DL (0.70-1.30); GLOMERULAR FILTRATION RATE > 60.0 (>60); GLUCOSE, FASTING 106 MG/DL (70-100); LIPASE 88 U/L (73-393); POTASSIUM SERUM 5.3 MEQ/L (3.5-5.1); SODIUM LEVEL 138 MEQ/L (136-145); TOTAL PROTEIN 7.7 GM/DL (6.4-8.2)
[2020-12-31 11:46] LABS: ERYTHROCYTE SEDIMENTATION RATE 62 mm/hr (0-15)
[2020-12-31] MEDS ORDERED: ISOVUE-370 76% 100ML VIAL As Ordered ONE (11:52)
--- NOTE | 2020-12-31 12:26 | REP ---
INDICATION: right flank pain r/o stone. COMPARISON: None. TECHNIQUE: Standard helical technique without intravenous or oral bowel preparatory contrast administration. Stone protocol utilized secondary to right-sided flank pain. FINDINGS: The lung bases are clear. There is a 6 mm size nonobstructing right nephrolith. There are no left nephroliths. There are no ureterolith sore urinary bladder calcifications. There is no hydronephrosis or hydroureter. Limited evaluation of the abdominal aorta and para-aortic regions show no gross abnormalities. Limited evaluation of the solid intra-abdominal organs and gallbladder show no gross abnormalities. Limited evaluation of the pancreas and adrenal glands show no gross abnormalities. There is no free fluid or free air. Limited evaluation of the bowel loops and the mesenteries show no gross abnormalities. The osseous structures are within normal limits. IMPRESSION: 6 mm size nonobstructing right nephrolith. <Electronically signed by Dejon Pollard > 12/31/20 [id number]
--- NOTE | 2020-12-31 12:31 | REP ---
INDICATION: CP r/o PE COMPARISON: None. TECHNIQUE: CT angiography of the chest attention pulmonary arteries after the intravenous administration of 75 cc of Isovue 370. FINDINGS: There is excellent visualization of the pulmonary arterial vasculature. There no focal filling defects present that would be considered consistent with acute pulmonary emboli. There are no pleural or pericardial effusions. There is no mediastinal or hilar adenopathy. The imaged upper abdomen and imaged osseous structures are within normal limits. Evaluation of the lung mandel shows no abnormal nodules, masses, or opacities. IMPRESSION: CT findings are within normal limits. <Electronically signed by Dejon Pollard > 12/31/20 [id number]
[2020-12-31] MEDS ORDERED: MORPHINE 4 MG/ML 1ML VIAL/SYRINGE (J2270) IV PRN (14:20)
[2020-12-31 16:00] VITALS: BP 114/70
[2020-12-31 16:38] LABS: CPK CREATINE PHOSPHOKINASE 166 U/L (39-308); RHEUMATOID FACTOR QUANT < 10.0 IU/ML (<15.0)
--- NOTE | 2020-12-31 20:34 | ECGEPIP ---
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
--- NOTE | 2020-12-31 20:40 | ECGEPIP ---
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
[2021-01-02 20:08] LABS: ANTINUCLEAR ANTIBODIES DIRECT Negative (Negative); Lyme Disease IgG Ab 18 kDa Ban Absent (.); Lyme Disease IgG Ab 23 kDa Ban Absent (.); Lyme Disease IgG Ab 28 kDa Ban Present (.); Lyme Disease IgG Ab 30 kDa Ban Absent (.); Lyme Disease IgG Ab 39 kDa Ban Absent (.); Lyme Disease IgG Ab 41 kDa Ban Absent (.); Lyme Disease IgG Ab 45 kDa Ban Absent (.); Lyme Disease IgG Ab 58 kDa Ban Present (.); Lyme Disease IgG Ab 66 kDa Ban Absent (.); Lyme Disease IgG Ab 93 kDa Ban Absent (.); Lyme Disease IgG West Blot Int Negative (.); Lyme Disease IgG/IgM Antibodie <0.91 ISR (0.00-0.90); Lyme Disease IgM Ab 23 kDa Ban Present (.); Lyme Disease IgM Ab 39 kDa Ban Absent (.); Lyme Disease IgM Ab 41 kDa Ban Absent (.); Lyme Disease IgM Ab Quantitati 0.83 index (0.00-0.79); Lyme Disease IgM West Blot Int Negative (.)
== END 2020-12-31 16:31 | disposition home or self-care (01) ==
LOC: M ED 08:20
DX: R07.9 Chest pain, unspecified (principal); N20.0 Calculus of kidney; Z79.899 Other long term (current) drug therapy; Z91.013 Allergy to seafood
CPT/HCPCS: 71045; 71275; 74176; 80048; 80076; 82550; 83690; 84484; 85025; 85379; 85652; 86038; 86431; 86617; 93005; 93041; 94760; 96374; 99285; J1885; J2270; Q9967

== ENCOUNTER → 2021-03-26 | Outpatient (REF) | payer OTHER ==
[~2021-03-26] MED LIST changes: -IBUP200T45 PO; +IBUP200T46 PO
[2021-03-26 13:00] LABS: BASO # 0.1 10^3/uL (0.0-0.2); BASO % 0.8 % (0.0-1.0); EOS # 0.3 10^3/uL (0.0-0.5); EOS % 4.2 % (0.0-3.0); HEMATOCRIT 47.9 % (42.0-52.0); HEMOGLOBIN 15.8 g/dl (13.5-17.5); LYMPH # 3.2 10^3/uL (1.5-5.0); MEAN CORPUSCULAR HEMOGLOBIN 28.8 pg (27.0-33.0); MEAN CORPUSCULAR VOLUME 87.2 fl (80.0-96.0); MONO # 0.7 10^3/uL (0.0-0.8); MONO % 9.3 % (2.0-8.0); NEUTROPHILS % 41.6 % (36.0-66.0); PLATELET COUNT, AUTOMATED 290 10^3/uL (150-450); RED BLOOD COUNT 5.49 10^6/uL (4.30-6.10); WHITE BLOOD COUNT 7.2 10^3/uL (4.0-10.0)
[2021-03-26 13:27] LABS: ALBUMIN 4.3 GM/DL (3.2-5.2); ALT/SGPT 42 U/L (12-78); BILIRUBIN,DIRECT 0.1 MG/DL (0.0-0.2); BILIRUBIN,TOTAL 0.5 MG/DL (0.2-1.0); BLOOD UREA NITROGEN 15 MG/DL (7-18); C REACTIVE PROTEIN QUANTITATIV 0.55 MG/DL (0.00-0.30); CALCIUM LEVEL 9.8 MG/DL (8.5-10.1); CARBON DIOXIDE LEVEL 29 MEQ/L (21-32); CHLORIDE LEVEL 105 MEQ/L (98-107); CREATININE FOR GFR 1.04 MG/DL (0.70-1.30); GLOMERULAR FILTRATION RATE > 60.0 (>60); GLUCOSE, FASTING 90 MG/DL (70-100); POTASSIUM SERUM 4.4 MEQ/L (3.5-5.1); SODIUM LEVEL 138 MEQ/L (136-145); TOTAL PROTEIN 8.3 GM/DL (6.4-8.2); URIC ACID 9.6 MG/DL (3.5-7.2)
[2021-03-26 13:57] LABS: ERYTHROCYTE SEDIMENTATION RATE 6 mm/hr (0-15)
== END ==
LOC: M SFHCRHEU 09:59
PROVIDERS: ATTEND Internal Medicine
DX: M1A.09X0 Idiopathic chronic gout, multiple sites, without tophus (tophi) (principal)
CPT/HCPCS: 80048; 80076; 84550; 85025; 85652; 86140; G0463